=== PATIENT | female | born 1985 | race Caucasian/White ===

== ENCOUNTER 2016-12-02 21:42 | Observation (INO) | payer OTHER ==
[~2016-12-02] VITALS: Ht 165.1 cm; Wt 69.6 kg
[2016-12-02 21:53] VITALS: BP 104/61; PULSE 80; TEMP 97.7
[2016-12-02] MEDS ORDERED: HCTZ 25MG TAB25 MG PO (23:57)
[2016-12-02] MEDS ORDERED: PRILOSEC 20MG20 MG PO (23:58)
[2016-12-02] MEDS ORDERED: ZYRTEC 10MG10 MG PO (23:59)
[2016-12-03] VITALS (12 sets, daily range): BP systolic 87–99; BP diastolic 52–66; PULSE 59–98; TEMP 96.8–98
[2016-12-03] MEDS ORDERED: TOPAMAX 25MG25 M1 PO
[2016-12-03] MEDS ORDERED: WELLBUTRIN XL300 M1 PO (00:02)
[2016-12-03] MEDS ORDERED: ADDERALL10 MG PO (00:03)
[2016-12-03] MEDS ORDERED: XANAX 0.5MG0.5 MG PO (00:04)
[2016-12-03 07:07] LABS: BASO # 0.1 (0.0-0.2); BASO % 0.6 % (0.0-2.0); EOS # 0.2 (0.0-0.7); EOS % 1.9 % (0-4.0); GRAN # 4.3 (1.4-6.5); GRAN % 52.5 % (42.2-75.2); HEMATOCRIT 39.7 % (37.0-47.0); HEMOGLOBIN 13.3 g/dl (12.5-16.0); LYMPH # 3.3 (1.2-3.4); LYMPH % 39.6 % (20.0-51.0); MEAN CELL VOLUME 88 fl (80.0-100.0); MEAN CORPUSCULAR HEMOGLOBIN 30 pg (27.0-31.0); MEAN CORPUSCULAR HGB CONC 34 g/dl (33.0-37.0); MEAN PLATELET VOLUME 9.1 fl (7.4-10.4); MONO # 0.4 (0.1-0.6); PLATELET COUNT 278 K/mm3 (130-400); RED BLOOD COUNT 4.51 M/mm3 (4.10-5.30); REDCELL DISTRIBUTION WIDTH-CV 12.6 % (11.5-14.5); WHITE BLOOD COUNT 8.3 K/mm3 (4.8-10.8)
[2016-12-03 07:08] LABS: CREATININE, serum 0.92 mg/dL (0.52-1.25); POTASSIUM 3.3 mmol/L (3.4-5.0)
[2016-12-03] MEDS ORDERED: PERCOCET 325 MG1 TA2 PO (09:10)
[2016-12-03] MEDS ORDERED: COLACE 100100 MG/CAP PO (09:10)
[2016-12-03] MEDS ORDERED: ZOFRAN ODT4 MG PO (09:11)
[2016-12-03] MEDS ORDERED: MOTRIN 600600 MG/TAB PO (09:11)
== END 2016-12-03 16:45 | disposition home or self-care (01) ==
LOC: SURG 21:42
PROVIDERS: Surgery
DX: K35.80 Unspecified acute appendicitis (principal); I10 Essential (primary) hypertension; Z90.710 Acquired absence of both cervix and uterus; Z82.49 Family history of ischemic heart disease and other diseases of the circulatory system; Z87.442 Personal history of urinary calculi; K21.9 Gastro-esophageal reflux disease without esophagitis; F32.9 Major depressive disorder, single episode, unspecified; F60.9 Personality disorder, unspecified; M41.9 Scoliosis, unspecified
CPT/HCPCS: G0378; J1100; J1170; J1885; J2250; J2270; J2405; J2543; J2704; J2710; J3010; J7050; J7120